=== PATIENT | female | born 1995 | race Caucasian/White ===

== ENCOUNTER 2018-08-09 17:55 | Emergency (ER) | payer OTHER ==
[~2018-08-09] VITALS: Ht 157.5 cm; Wt 52.2 kg
[~2018-08-09 17:55] MED LIST: IRON325; PRENATAL; ZPAK PO
[2018-08-09 18:47] LABS: ABSOLUTE LYMPHOCYTES 1.2 thou/uL (0.8-5.3); ABSOLUTE MONOCYTES 0.6 thou/uL (0.0-1.2); ABSOLUTE NEUTROPHILS 9.9 thou/uL (1.6-8.1); BASOPHILS 0.2 %; HEMATOCRIT 39.8 % (37.0-47.0); HEMOGLOBIN 13.3 gm/dL (12.0-15.0); LYMPHOCYTES 10.2 %; MCHC 33.4 g/dL (28.0-37.0); MONOCYTES 5.2 %; MPV 8.9 fl. (7.2-11.1); NUCLEATED RBCS 0 /100WBC; PLATELET COUNT* 187 thou/uL (150-400); POLYS 84.4 %; RBC 4.57 mil/uL (4.20-5.00); RDW-CV 12.9 % (10.5-14.5); WBC 11.7 thou/uL (4.0-11.0)
[2018-08-09 18:54] LABS: URINE BILIRUBIN NEGATIVE (Negative); URINE BLOOD NEGATIVE (Negative); URINE CLARITY CLEAR; URINE COLOR YELLOW; URINE GLUCOSE-RANDOM NEGATIVE (Negative); URINE KETONES NEGATIVE (Negative); URINE LEUKOCYTES-REFLEX NEGATIVE (Negative); URINE NITRITE-REFLEX NEGATIVE (Negative); URINE PROTEIN NEGATIVE (Negative); URINE SPECIFIC GRAVITY 1.015 (1.005-1.030); URINE UROBILINOGEN 0.2 E.U./dl (0.2-1.0)
[2018-08-09 18:57] LABS: ANION GAP 7 mmol/L (7-16); BUN 7 mg/dL (7-18); CALCIUM 8.8 mg/dL (8.5-10.1); CHLORIDE 102 mmol/L (98-107); CO2 26 mmol/L (21-32); CREATININE 0.6 mg/dL (0.6-1.3); GLUCOSE 96 mg/dL (70-99); POTASSIUM 3.2 mmol/L (3.5-5.1); SODIUM 135 mmol/L (136-145)
[2018-08-09 19:08] LABS: ALBUMIN 3.7 g/dL (3.4-5.0); ALKALINE PHOSPHATASE 77 U/L (46-116); SGOT 14 U/L (15-37); SGPT 20 U/L (30-65); TOTAL BILIRUBIN 0.5 mg/dL (<0.1-1.0); TROPONIN-I LEVEL <0.06 ng/mL (<0.06)
[2018-08-09 20:11] LABS: AMP/METHAMP Negative (Negative); BARBITURATES Negative (Negative); BENZODIAZEPINES Negative (Negative); COCAINE Negative (Negative); METHADONE Negative (Negative); OPIATES Negative (Negative); PCP Negative (Negative); THC Negative (Negative)
[2018-08-09 21:27] VITALS: BP 111/60
--- NOTE | 2018-08-10 15:38 | EKG ---
[place] [address] ELECTROCARDIOGRAM REPORT Name: DANNIE PARDO Room: [facility]#: [id number] Admission: 08/09/18 Attend Phys: Discharge: 08/09/18 Date of : [birth year] Report #: [id number] THIS REPORT FOR: //name// [facility] ED Test Date: 2018-08-09 Test Time: 18:01:23 Pat Name: DANNIE PARDO Department: Room: Gender: Baker Chef: : 1995 Requested By: Viki Nails Order Number: [id number] Rickie MD: Jimmy Leon Measurements Intervals [place] Rate: 102 P: 71 [place]: 129 QRS: 41 QRSD: 87 T: 12 QT: 331 QTc: 432 Interpretive Statements Sinus tachycardia Low voltage, precordial leads Baseline wander in lead(s) II,V2 No previous ECG available for comparison Electronically Signed On 08-10-2018 15:38:28 CDT by Jimmy Leon [email or web address] <ELECTRONICALLY SIGNED> By: Jimmy Leon MD, [facility] 08/10/18 1538 00 00 Jimmy Leon MD, FAC /EPI
== END 2018-08-09 21:28 | disposition home or self-care (01) ==
LOC: M.ERS 17:55
PROVIDERS: Physician Assistant
DX: I95.1 Orthostatic hypotension (principal); E87.6 Hypokalemia; Z88.1 Allergy status to other antibiotic agents; Z88.2 Allergy status to sulfonamides

== ENCOUNTER 2019-04-28 09:06 | Emergency (ER) | payer OTHER ==
[~2019-04-28] VITALS: Ht 154.9 cm; Wt 52.6 kg
[2019-04-28] MEDS ORDERED: ENBRACE HR SOF1 EACH PO (09:15)
[2019-04-28 10:19] VITALS: BP 117/62
== END 2019-04-28 10:28 | disposition home or self-care (01) ==
LOC: M.ERS 09:06
DX: S63.591A Other specified sprain of right wrist, initial encounter (principal); Z88.1 Allergy status to other antibiotic agents; Z88.2 Allergy status to sulfonamides; X58.XXXA Exposure to other specified factors, initial encounter; Y93.89 Activity, other specified; Y92.89 Other specified places as the place of occurrence of the external cause; Y99.8 Other external cause status

== ENCOUNTER 2020-02-20 09:11 | Emergency (ER) | payer OTHER ==
[~2020-02-20] VITALS: Ht 157.5 cm; Wt 54.4 kg
[~2020-02-20 09:11] MED LIST changes: +ENBRACE HR SOF1 EACH PO
[2020-02-20] MEDS ORDERED: MIRENA1 EACH INTRAUTERI (09:28)
[2020-02-20] MEDS ORDERED: TESSALON PERLE100 M1 PO (10:08)
[2020-02-20 10:55] VITALS: BP 99/55
== END 2020-02-20 10:55 | disposition home or self-care (01) ==
LOC: M.ERS 09:11
DX: B34.9 Viral infection, unspecified (principal); Z20.828 Contact with and (suspected) exposure to other viral communicable diseases; Z88.2 Allergy status to sulfonamides; Z88.1 Allergy status to other antibiotic agents; Z87.442 Personal history of urinary calculi